=== PATIENT | female | born 1985 | race Caucasian/White ===

== ENCOUNTER 2016-11-24 18:19 | Emergency (ER) | payer OTHER ==
[~2016-11-24 18:19] MED LIST: ASPIR 8181 MG PO; CEPHALEXIN500 MG PO; LASIX40 MG PO; LIPITOR40 MG PO; NOR10T PO; POTASSIUM CHLO20 ME1 PO; TRAZODONE50 M1 PO
[2016-11-24 23:30] VITALS: BP 121/60
== END 2016-11-24 23:30 | disposition home or self-care (01) ==
LOC: ED 18:19
DX: L03.115 Cellulitis of right lower limb (principal); I89.0 Lymphedema, not elsewhere classified

== ENCOUNTER 2016-11-30 01:57 | Emergency (ER) | payer OTHER ==
[2016-11-30 04:35] VITALS: BP 138/84
== END 2016-11-30 04:35 | disposition home or self-care (01) ==
LOC: ED 01:57
DX: R60.0 Localized edema (principal); L03.115 Cellulitis of right lower limb; E66.01 Morbid (severe) obesity due to excess calories; F17.210 Nicotine dependence, cigarettes, uncomplicated; Z79.899 Other long term (current) drug therapy; Z88.6 Allergy status to analgesic agent

== ENCOUNTER 2016-12-08 16:18 | Emergency (ER) | payer OTHER ==
[~2016-12-08] VITALS: Ht 157.5 cm; Wt 132.9 kg
[2016-12-08 17:02] VITALS: BP 136/94
== END 2016-12-08 17:02 | disposition home or self-care (01) ==
LOC: ED 16:18
DX: Z76.0 Encounter for issue of repeat prescription (principal); F17.210 Nicotine dependence, cigarettes, uncomplicated; E66.01 Morbid (severe) obesity due to excess calories; G89.29 Other chronic pain; I89.0 Lymphedema, not elsewhere classified; M79.606 Pain in leg, unspecified; Z88.8 Allergy status to other drugs, medicaments and biological substances

== ENCOUNTER 2016-12-13 13:40 | Emergency (ER) | payer OTHER ==
[~2016-12-13] VITALS: Ht 157.5 cm; Wt 133.8 kg
[2016-12-13 14:20] VITALS: BP 126/77
== END 2016-12-13 16:54 | disposition left against medical advice (07) ==
LOC: ED 13:40
DX: Z53.21 Procedure and treatment not carried out due to patient leaving prior to being seen by health care provider (principal)

== ENCOUNTER 2017-02-16 12:51 | Emergency (ER) | payer OTHER ==
[~2017-02-16] VITALS: Ht 157.5 cm; Wt 117.9 kg
[2017-02-16 13:44] LABS: BASOPHIL % 1.4 % (0-2); PLATELET COUNT 242 x10^3mcL (130-400)
[2017-02-16 13:53] LABS: RED CELL DISTRIBUTION WIDTH 14.7 % (11.5-14.5)
[2017-02-16 13:58] LABS: CALCIUM 8.6 mg/dL (8.5-10.1); CARBON DIOXIDE 27.7 mmol/L (21-32); CHLORIDE SERUM 104 mmol/L (98-107); CREATININE SERUM 0.6 mg/dL (0.6-1.0); GFR1 > 60 mL/min; GLUCOSE SERUM 129 mg/dL (74-106); POTASSIUM SERUM 3.8 mmol/L (3.5-5.1); SODIUM SERUM 140 mmol/L (136-145)
[2017-02-16 14:03] LABS: ALBUMIN 3.6 g/dL (3.4-5.0); ALKALINE PHOSPHATASE 69 U/L (46-116); ALT/SGPT 33 U/L (14-59); AST/SGOT 27 U/L (15-37); BILIRUBIN TOTAL 0.4 mg/dL (0.20-1.00); CHOLESTEROL 160 mg/dL (<200); CHOLESTEROL/HDL RATIO 2.8; HDL CHOLESTEROL 58 mg/dL (40-60); LIPASE 87 IU/L (73-393); TOTAL PROTEIN, SERUM 7.6 g/dL (6.4-8.2); TRIGLYCERIDES 63 mg/dL (<150)
[2017-02-16 14:12] LABS: T3 TOTAL 1.16 ng/mL
[2017-02-16 15:11] LABS: UA SPECIFIC GRAVITY 1.015 (1.005-1.035); microscopic required? YES; urine erythrocyte NEGATIVE (NEGATIVE)
[2017-02-16 15:21] VITALS: BP 117/69
[2017-02-16 19:02] LABS: FREE T4 1.03 ng/dL (0.76-1.46); FREE THYROXINE INDEX 2.4 ug/dL (1.4-4.5); T4(THYROXINE) 6.8 ug/dL (4.7-13.3)
== END 2017-02-16 15:21 | disposition home or self-care (01) ==
LOC: ED 12:51
PROVIDERS: Specialist
DX: M79.1 Myalgia (principal); E66.01 Morbid (severe) obesity due to excess calories; I89.0 Lymphedema, not elsewhere classified
CPT/HCPCS: 83880; 84439; J1170; J2765; Q0092

== ENCOUNTER 2017-02-17 16:10 | Inpatient (IN) | payer OTHER ==
[~2017-02-17] VITALS: Ht 157.5 cm; Wt 139.0 kg
[2017-02-17 18:55] LABS: BASOPHIL % 0.3 % (0-2); PLATELET COUNT 230 x10^3mcL (130-400)
[2017-02-17 19:05] LABS: CALCIUM 8.6 mg/dL (8.5-10.1); CARBON DIOXIDE 25.8 mmol/L (21-32); CHLORIDE SERUM 105 mmol/L (98-107); CREATININE SERUM 0.6 mg/dL (0.6-1.0); GFR1 > 60 mL/min; GLUCOSE SERUM 100 mg/dL (74-106); POTASSIUM SERUM 3.4 mmol/L (3.5-5.1); SODIUM SERUM 140 mmol/L (136-145)
[2017-02-17 19:06] LABS: RED CELL DISTRIBUTION WIDTH 15.7 % (11.5-14.5)
[2017-02-17 19:09] LABS: ALBUMIN 3.8 g/dL (3.4-5.0); ALKALINE PHOSPHATASE 65 U/L (46-116); ALT/SGPT 33 U/L (14-59); AST/SGOT 23 U/L (15-37); BILIRUBIN TOTAL 0.4 mg/dL (0.20-1.00); CHOLESTEROL 154 mg/dL (<200); CHOLESTEROL/HDL RATIO 2.7; HDL CHOLESTEROL 58 mg/dL (40-60); LIPASE 86 IU/L (73-393); TOTAL PROTEIN, SERUM 7.9 g/dL (6.4-8.2); TRIGLYCERIDES 73 mg/dL (<150)
[2017-02-17 19:17] LABS: FREE T4 1.05 ng/dL (0.76-1.46); FREE THYROXINE INDEX 2.4 ug/dL (1.4-4.5); T4(THYROXINE) 7.4 ug/dL (4.7-13.3)
[2017-02-17 19:19] LABS: MAGNESIUM 1.9 mg/dL (1.8-2.4); PHOSPHOROUS 3.5 mg/dL (2.5-4.9)
[2017-02-17 19:21] LABS: T3 TOTAL 1.03 ng/mL
[2017-02-17 20:02] VITALS: BP 103/66
[2017-02-17 20:07] VITALS: Ht 157.5 cm; Wt 139.0 kg
[2017-02-18 05:25] VITALS: BP 101/62
[2017-02-18 10:41] VITALS: BP 127/75
[2017-02-18 14:55] VITALS: BP 108/58
[2017-02-18] MEDS ORDERED: DULOXETINE HYDR60 MG PO (15:37)
[2017-02-18] MEDS ORDERED: MAC100 PO (15:39)
[2017-02-18] MEDS ORDERED: LAC PO (15:39)
[2017-02-18] MEDS ORDERED: MEDDP PO (15:47)
[2017-02-18 15:52] VITALS: BP 108/58
[2017-02-18] MEDS ORDERED: NEU300 PO (16:32)
== END 2017-02-18 17:32 | disposition home or self-care (01) | DRG 351 ==
LOC: ED 16:10 → DU 18:18
PROVIDERS: Specialist; ADMIT Family Medicine
DX: M79.7 Fibromyalgia (principal); N39.0 Urinary tract infection, site not specified; Z68.43 Body mass index [BMI] 50.0-59.9, adult; E66.01 Morbid (severe) obesity due to excess calories; F32.9 Major depressive disorder, single episode, unspecified; R59.1 Generalized enlarged lymph nodes; G47.00 Insomnia, unspecified; F41.1 Generalized anxiety disorder; E87.6 Hypokalemia; Z79.82 Long term (current) use of aspirin; Z79.899 Other long term (current) drug therapy; Z80.9 Family history of malignant neoplasm, unspecified; Z83.3 Family history of diabetes mellitus; Z84.89 Family history of other specified conditions
CPT/HCPCS: 83880; 84439; 86431; J0696; J1170; J2270; J2765; J2920; J2930; J3480; J7030; Q0092

== ENCOUNTER 2017-04-21 13:18 | Emergency (ER) | payer OTHER ==
[~2017-04-21 13:18] MED LIST changes: +DULOXETINE HYDR60 MG PO; +LAC PO; +MAC100 PO; +MEDDP PO; +NEU300 PO
[2017-04-21 17:33] LABS: BASOPHIL % 0.3 % (0-2); PLATELET COUNT 302 x10^3mcL (130-400)
[2017-04-21 17:34] LABS: RED CELL DISTRIBUTION WIDTH 14.6 % (11.5-14.5)
[2017-04-21 17:40] LABS: CALCIUM 8.3 mg/dL (8.5-10.1); CARBON DIOXIDE 26.6 mmol/L (21-32); CHLORIDE SERUM 105 mmol/L (98-107); CREATININE SERUM 0.7 mg/dL (0.6-1.0); GFR1 > 60 mL/min; GLUCOSE SERUM 101 mg/dL (74-106); POTASSIUM SERUM 3.5 mmol/L (3.5-5.1); SODIUM SERUM 141 mmol/L (136-145)
[2017-04-21 17:43] LABS: ALBUMIN 3.8 g/dL (3.4-5.0); ALKALINE PHOSPHATASE 65 U/L (46-116); ALT/SGPT 17 U/L (14-59); AST/SGOT 16 U/L (15-37); BILIRUBIN TOTAL 0.54 mg/dL (0.20-1.00); LIPASE 84 IU/L (73-393)
[2017-04-21 18:28] VITALS: BP 110/68
[2017-04-21 18:46] LABS: microscopic required? YES; urine erythrocyte NEGATIVE (NEGATIVE)
== END 2017-04-21 20:08 | disposition home or self-care (01) ==
LOC: ED 13:18
PROVIDERS: Emergency Medicine
DX: N39.0 Urinary tract infection, site not specified (principal); I10 Essential (primary) hypertension; G62.9 Polyneuropathy, unspecified; Z79.899 Other long term (current) drug therapy; Z88.6 Allergy status to analgesic agent; Z88.8 Allergy status to other drugs, medicaments and biological substances
CPT/HCPCS: J1885

== ENCOUNTER 2017-05-17 16:38 | Emergency (ER) | payer OTHER ==
[2017-05-17 17:27] LABS: BASOPHIL % 0.2 % (0-2); PLATELET COUNT 230 x10^3mcL (130-400); RED CELL DISTRIBUTION WIDTH 14.1 % (11.5-14.5)
[2017-05-17 17:30] LABS: UA SPECIFIC GRAVITY 1.015 (1.005-1.035); microscopic required? YES; urine erythrocyte 3+ (NEGATIVE)
[2017-05-17 17:36] LABS: CALCIUM 8.4 mg/dL (8.5-10.1); CARBON DIOXIDE 30.8 mmol/L (21-32); CHLORIDE SERUM 103 mmol/L (98-107); CREATININE SERUM 0.6 mg/dL (0.6-1.0); GFR1 > 60 mL/min; GLUCOSE SERUM 105 mg/dL (74-106); SODIUM SERUM 140 mmol/L (136-145)
[2017-05-17 17:40] LABS: ALBUMIN 3.6 g/dL (3.4-5.0); ALKALINE PHOSPHATASE 58 U/L (46-116); ALT/SGPT 20 U/L (14-59); AMYLASE 47 U/L (25-115); AST/SGOT 17 U/L (15-37); BILIRUBIN TOTAL 0.48 mg/dL (0.20-1.00); LIPASE 64 IU/L (73-393); TOTAL PROTEIN, SERUM 7.5 g/dL (6.4-8.2)
[2017-05-17 21:04] VITALS: BP 102/59
== END 2017-05-17 21:04 | disposition home or self-care (01) ==
LOC: ED 16:38
PROVIDERS: Emergency Medicine
DX: R10.31 Right lower quadrant pain (principal); R10.32 Left lower quadrant pain; G62.9 Polyneuropathy, unspecified; Z88.6 Allergy status to analgesic agent
CPT/HCPCS: J1170; J2765

== ENCOUNTER 2018-05-11 22:56 | Emergency (ER) | payer OTHER ==
[~2018-05-11] VITALS: Ht 157.5 cm; Wt 124.7 kg
[2018-05-11 23:00] VITALS: Ht 157.5 cm; Wt 124.7 kg
[2018-05-12 00:13] LABS: BASOPHIL % 0.3 % (0-2); PLATELET COUNT 249 x10^3mcL (130-400); RED CELL DISTRIBUTION WIDTH 14.1 % (11.5-14.5)
[2018-05-12 01:14] LABS: UA SPECIFIC GRAVITY 1.025 (1.005-1.035); microscopic required? YES; urine erythrocyte NEGATIVE (NEGATIVE)
[2018-05-12 02:11] VITALS: BP 98/52
== END 2018-05-12 02:11 | disposition home or self-care (01) ==
LOC: ED 22:56
PROVIDERS: Emergency Medicine
DX: O20.0 Threatened abortion (principal); Z88.8 Allergy status to other drugs, medicaments and biological substances
CPT/HCPCS: 36415